=== PATIENT | male | born 1970 | race Two or more races ===

== ENCOUNTER 2019-06-20 18:59 | Emergency (ER) | payer MEDICAID ==
[~2019-06-20] VITALS: Ht 162.6 cm; Wt 65.8 kg
[2019-06-20 19:32] VITALS: BP 95/78
[2019-06-20] MEDS ORDERED: DEXAMETHASONE 4 MG TABLET PO STA (20:32)
[2019-06-20] MEDS ORDERED: IBUPROFEN 200 MG TABLET ONE (20:53)
[2019-06-20] MEDS ORDERED: DEXAMETHASONE 4 MG TABLET ONE ×2 (20:53→21:04)
[2019-06-20] MEDS ORDERED: IBUPROFEN 200 MG TABLET PO ONE (21:00)
[2019-06-20 21:16] LABS: MICROSCOPIC NOT IND
[2019-06-20 21:20] LABS: CULTURE INDICATED? NO
--- NOTE | 2019-06-20 21:47 | NUR ---
Patient/Caregiver given discharge instructions and they have confirmed that they understand the instructions. Patient ambulatory with steady gait.
== END 2019-06-20 21:49 | disposition home or self-care (01) ==
LOC: ED 19:50
DX: J20.9 Acute bronchitis, unspecified (principal); R11.0 Nausea; M79.10 Myalgia, unspecified site; F17.200 Nicotine dependence, unspecified, uncomplicated
CPT/HCPCS: 71046; 81003; 99283; 99284

== ENCOUNTER 2021-01-26 00:35 | Emergency (ER) | payer MEDICAID ==
[~2021-01-26] VITALS: Ht 162.6 cm; Wt 68.5 kg
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
[2021-01-26 03:10] LABS: BASOPHILS % (AUTO) 1 % (0-1); EOSINOPHILS % (AUTO) 1 % (1-7); LYMPHOCYTES % (AUTO) 23 % (22-44); MEAN CORPUSCULAR HEMOGLOBIN 29.9 pg (27.5-34.5); MEAN CORPUSCULAR HGB CONC 33.7 g/dL (33.2-36.2); MEAN PLATELET VOLUME 7.7 fL (7.4-10.4); MONOCYTES % (AUTO) 8 % (2-9); NEUTROPHILS % (AUTO) 68 % (42-75); PLATELET COUNT 282 x10^3/uL (130-400); RED BLOOD COUNT 4.59 x10^6/uL (4.38-5.82); RED CELL DISTRIBUTION WIDTH 13.4 % (9.4-14.8)
--- NOTE | 2021-01-26 03:16 | NUR ---
Patient is resting comfortably in bed. Bed in lowest, rails engaged, call light on lap. Vital Signs within normal limits. WCTM.
[2021-01-26 03:21] LABS: ALBUMIN 2.3 g/dL (3.4-5.0); ANION GAP 5 mmol/L (5-15); CALCIUM 8.7 mg/dL (8.5-10.1); CHLORIDE 103 mmol/L (98-107)
[2021-01-26] MEDS ORDERED: SULFAMETH./TRIMETHOPRIM DS 800MG/160MG TABLET PO ONE (04:00)
[2021-01-26] MEDS ORDERED: LIDOCAINE-MPF 1%, 5ML ONE (04:06)
[2021-01-26] MEDS ORDERED: SULFAMETH./TRIMETHOPRIM DS 800MG/160MG TABLET ONE (04:06)
[2021-01-26] MEDS ORDERED: LIDOCAINE-MPF 1%, 5ML INFIL ONE (04:30)
[2021-01-26 04:51] VITALS: BP 127/70
--- NOTE | 2021-01-26 05:12 | NUR ---
Patient given discharge instructions and they have confirmed that they understand the instructions. Patient ambulatory with steady gait. NAD, all questions answered appropriately, denies additional needs at this time. No personal belongings left in room after discharge.
== END 2021-01-26 05:14 | disposition home or self-care (01) ==
LOC: ED 01:05
DX: L03.114 Cellulitis of left upper limb (principal); L02.414 Cutaneous abscess of left upper limb; F15.10 Other stimulant abuse, uncomplicated; Z72.9 Problem related to lifestyle, unspecified
CPT/HCPCS: 10060; 36415; 80048; 82040; 85025; 99284